=== PATIENT | male | born 1935 | race African-American/Black ===

== ENCOUNTER 2025-02-22 20:18 | Inpatient (IN) | payer OTHER, MEDICARE ==
[~2025-02-22] VITALS: Ht 154.9 cm; Wt 65.8 kg
[2025-02-22 20:31] LABS: BASOPHILS % 0.5 % (0.0-2.0); DIFFERENTIAL COMMENT 0; EOSINOPHILS % 2.7 % (0.0-5.0); HEMATOCRIT. 40.1 % (42.0-52.0); HEMOGLOBIN. 12.8 g/dL (14.0-18.0); LYMPHOCYTES % 37.6 % (20.0-50.0); MEAN CORPUSCULAR HEMOGLOBIN 26.1 pg (28.0-32.0); MEAN CORPUSCULAR HGB CONC 31.8 g/dL (31.0-37.0); MEAN PLATELET VOLUME 10.5 fl (7.4-10.4); MONOCYTES % 13.8 % (2.0-8.0); NEUTROPHILS % 45.4 % (40.0-76.0); PLATELET 116 x1000/uL (130-400); RED BLOOD CELL COUNT 4.89 mill/uL (4.7-6.1); WHITE BLOOD COUNT 3.3 x1000/uL (4.5-11.0)
[2025-02-22 20:38] LABS: CHLORIDE 105 mEq/L (98-107); POTASSIUM 3.5 mEq/L (3.5-5.1); SODIUM 141 mEq/L (136-145)
[2025-02-22 20:39] LABS: CALCIUM 8.9 mg/dL (8.7-10.4); CARBON DIOXIDE 27 mEq/L (21-32)
[2025-02-22 20:44] LABS: CREATININE 0.9 mg/dL (0.6-1.3); GLUCOSE 112 mg/dL (70-105); UREA NITROGEN BLOOD 10 mg/dL (9-23)
[2025-02-22 20:45] LABS: ETHANOL BLOOD < 10 mg/dL (<10)
[2025-02-22 20:51] LABS: INR 1.1; PROTHROMBIN TIME 12.1 sec (9.6-11.0)
[2025-02-22] MEDS: LABETALOL 5MG/ML 4ML INJ IV ONE (20:54)
[2025-02-22] MEDS: NICARDIPINE 40MG/200ML PREMIX 200 ML IV PRN (22:42)
[2025-02-22] MEDS ORDERED: GUAIFENESIN 200MG/10ML SUGAR FREE UDC PO PRN (23:00)
[2025-02-22] MEDS ORDERED: IPRATROPIUM/ALBUTEROL 0.5-3(2.5)MG/3ML NEB HHN PRN (23:00)
[2025-02-22] MEDS ORDERED: MAGNESIUM/ALUMINUM HYDROXIDE/SIMETHICONE 30ML UDC PO PRN (23:00)
[2025-02-22] MEDS ORDERED: ACETAMINOPHEN 325MG TABLET PO PRN ×2 (23:00)
[2025-02-22] MEDS ORDERED: ONDANSETRON HCL 4MG/2ML INJ IV PRN (23:00)
[2025-02-22] MEDS ORDERED: DOCUSATE SODIUM 100MG CAPSULE PO PRN (23:00)
[2025-02-22 23:45] VITALS: BP 115/73; PULSE 89; RESP 17; TEMP 36.6; O2SAT 98
[2025-02-23] VITALS (89 sets, daily range): BP systolic 107–148; BP diastolic 51–95; PULSE 48–93; RESP 10–26; TEMP 36.6–36.9; O2SAT 97–100
[2025-02-23 00:19] LABS: *AMPHETAMINES SCREEN URINE NEGATIVE (NEGATIVE); *BARBITURATES SCREEN URINE NEGATIVE (NEGATIVE); *BENZODIAZEPINES SCREEN URINE NEGATIVE (NEGATIVE); *COCAINE SCREEN URINE NEGATIVE (NEGATIVE); METHADONE URINE SCREEN NEGATIVE (NEGATIVE)
[2025-02-23 00:20] LABS: CANNABINOID URINE SCREEN NEGATIVE (NEGATIVE); ECSTASY MDMA SCREEN URINE NEGATIVE (NEGATIVE); OPIATES URINE SCREEN NEGATIVE (NEGATIVE); PHENCYCLIDINE URINE SCREEN NEGATIVE (NEGATIVE)
[2025-02-23] MEDS ORDERED: TIMO15DR12 EACHEYE (01:28)
[2025-02-23] MEDS: DEXT 5%/LACTATED RINGERS 1,000 ML IV SCH (01:28)
[2025-02-23] MEDS: NICARDIPINE 100 MG in SODIUM CHLORIDE 0.9% 60 ML IV PRN (01:28)
[2025-02-23 05:42] LABS: BASOPHILS % 0.5 % (0.0-2.0); EOSINOPHILS % 1.3 % (0.0-5.0); HEMATOCRIT. 38.1 % (42.0-52.0); HEMOGLOBIN. 12.2 g/dL (14.0-18.0); LYMPHOCYTES % 25.1 % (20.0-50.0); MEAN CORPUSCULAR HEMOGLOBIN 26.1 pg (28.0-32.0); MEAN CORPUSCULAR VOLUME 81.5 fL (80.0-94.0); MEAN PLATELET VOLUME 10.4 fl (7.4-10.4); NEUTROPHILS % 60.1 % (40.0-76.0); PLATELET 104 x1000/uL (130-400); RED BLOOD CELL COUNT 4.67 mill/uL (4.7-6.1); RED CELL DISTRIBUTION WIDTH 14.8 % (11.6-14.6); WHITE BLOOD COUNT 3.6 x1000/uL (4.5-11.0)
[2025-02-23 05:53] LABS: CHLORIDE 107 mEq/L (98-107); POTASSIUM 3.7 mEq/L (3.5-5.1); SODIUM 143 mEq/L (136-145)
[2025-02-23 05:55] LABS: CALCIUM 8.7 mg/dL (8.7-10.4); CARBON DIOXIDE 28 mEq/L (21-32)
[2025-02-23 06:00] LABS: CREATININE 0.8 mg/dL (0.6-1.3); GLUCOSE 114 mg/dL (70-105); TROPONIN I HIGH SENSITIVITY 12 ng/L (3.0-53)
[2025-02-23 06:01] LABS: TRIGLYCERIDE 34 mg/dL (0-150); UREA NITROGEN BLOOD 9 mg/dL (9-23)
[2025-02-23 06:02] LABS: ALANINE AMINOTRANSFERASE 14 IU/L (10-49); ALBUMIN 3.7 g/dL (3.2-4.8); ASPARTATE AMINOTRANSFERASE 21 IU/L (<34); CHOLESTEROL 156 mg/dL (<200); FERRITIN 58 ng/mL (22-322); LDL CHOLESTEROL 85 mg/dL (5-100); T4 FREE 1.17 ng/dL (0.89-1.76)
[2025-02-23 06:03] LABS: BILIRUBIN DIRECT 0.3 mg/dL (<=3.0); HDL CHOLESTEROL 60 mg/dL (>55); VITAMIN B12 SERUM 1057 pg/mL (211-911)
[2025-02-23 06:08] LABS: IRON 79 ug/dL (65-175)
[2025-02-23 06:11] LABS: TOTAL IRON BINDING CAPACITY 230 ug/dl (250-425)
[2025-02-23] MEDS: DEXAMETHASONE 4MG/ML 1ML VIAL IV SCH (06:47)
[2025-02-23] MEDS: TIMOLOL MALEATE 0.5% OPHTH DROPS 5ML EACHEYE SCH (08:32)
[2025-02-23] MEDS: PANTOPRAZOLE SODIUM 40 MG/VIAL IV SCH (08:32)
[2025-02-23 15:08] LABS: TROPONIN I HIGH SENSITIVITY 5 ng/L (3.0-53)
[2025-02-23] MEDS ORDERED: HYDRALAZINE HCL 25MG TABLET PO PRN ×2 (16:15)
[2025-02-23] MEDS: AMLODIPINE 5MG TABLET PO SCH (16:15)
[2025-02-23] MEDS ORDERED: AMLODIPINE 5MG TABLET PO SCH (16:15)
[2025-02-23] MEDS ORDERED: HYDRALAZINE HCL 50MG TABLET PO SCH (22:00)
[2025-02-24] VITALS (48 sets, daily range): BP systolic 100–160; BP diastolic 65–110; PULSE 54–91; RESP 10–27; TEMP 36.4–36.8; O2SAT 96–100
[2025-02-24] MEDS ORDERED: PHENYLEPHRINE 50MG/250ML PMX 250 ML IV PRN (03:30)
[2025-02-24] MEDS ORDERED: NOREPINEPHRINE 8MG/250ML PMX 250 ML IV PRN (03:30)
[2025-02-24] MEDS ORDERED: AMLODIPINE 10MG TABLET PO SCH (09:00)
[2025-02-24 09:47] LABS: BASOPHILS % 0.2 % (0.0-2.0); HEMATOCRIT. 41.3 % (42.0-52.0); HEMOGLOBIN. 13.1 g/dL (14.0-18.0); LYMPHOCYTES % 11.8 % (20.0-50.0); MEAN CORPUSCULAR HEMOGLOBIN 26.2 pg (28.0-32.0); MEAN CORPUSCULAR HGB CONC 31.8 g/dL (31.0-37.0); MEAN CORPUSCULAR VOLUME 82.5 fL (80.0-94.0); MEAN PLATELET VOLUME 10.3 fl (7.4-10.4); MONOCYTES % 2.3 % (2.0-8.0); NEUTROPHILS % 85.7 % (40.0-76.0); PLATELET 102 x1000/uL (130-400); RED BLOOD CELL COUNT 5.01 mill/uL (4.7-6.1); RED CELL DISTRIBUTION WIDTH 15.1 % (11.6-14.6); WHITE BLOOD COUNT 6.7 x1000/uL (4.5-11.0)
[2025-02-24 10:09] LABS: CHLORIDE 103 mEq/L (98-107); POTASSIUM 4.2 mEq/L (3.5-5.1); SODIUM 137 mEq/L (136-145)
[2025-02-24 10:10] LABS: CALCIUM 9.1 mg/dL (8.7-10.4); CARBON DIOXIDE 24 mEq/L (21-32)
[2025-02-24 10:15] LABS: CREATININE 0.8 mg/dL (0.6-1.3); GLUCOSE 137 mg/dL (70-105); UREA NITROGEN BLOOD 16 mg/dL (9-23)
[2025-02-24] MEDS ORDERED: HYDRALAZINE HCL 25MG TABLET PO PRN (10:30)
[2025-02-24] MEDS: CLONIDINE 0.1MG TABLET PO PRN (17:11)
[2025-02-24] MEDS: AMLODIPINE 2.5MG TABLET PO SCH (21:15)
[2025-02-25] VITALS (21 sets, daily range): BP systolic 114–136; BP diastolic 62–83; PULSE 53–69; RESP 9–21; TEMP 36.4–37; O2SAT 98–100
[2025-02-25] MEDS ORDERED: AMLO2.5T45 PO (11:46)
== END 2025-02-25 15:45 | disposition home health service (06) | DRG 64 ==
LOC: ER 20:18 → MICUSO 21:53 → ENRESERV 22:01 → 5EST 02-25 10:25
PROVIDERS: ADMIT Internal Medicine; ATTEND Internal Medicine
DX: I61.0 Nontraumatic intracerebral hemorrhage in hemisphere, subcortical (principal); G93.41 Metabolic encephalopathy; I63.89 Other cerebral infarction; I16.1 Hypertensive emergency; G93.49 Other encephalopathy; G81.91 Hemiplegia, unspecified affecting right dominant side; D69.6 Thrombocytopenia, unspecified; I10 Essential (primary) hypertension; D72.819 Decreased white blood cell count, unspecified; D64.9 Anemia, unspecified; J32.0 Chronic maxillary sinusitis; R29.705 NIHSS score 5; R73.9 Hyperglycemia, unspecified; Z79.899 Other long term (current) drug therapy; Z86.11 Personal history of tuberculosis; Z86.73 Personal history of transient ischemic attack (TIA), and cerebral infarction without residual deficits
CPT/HCPCS: 36415; 70496; 70498; 71045; 80048; 80061; 80076; 80305; 80320; 81003; 82607; 82728; 82962; 83036; 83540; 83550; 84439; 84443; 84484; 85025; 86850; 86900; 93005; 93306; 93971; 97110; 97116; 97162; 97166; 97530; 97535; 99285; A4606; J1100; J2470; J3490; J7121; G0480